=== PATIENT | female | born 1940 | race Caucasian/White ===

== ENCOUNTER 2017-02-09 17:20 | Inpatient (IN) | payer MEDICARE, BC ==
[~2017-02-09] VITALS: Ht 152.4 cm; Wt 72.6 kg
--- NOTE | ~2017-02-09 | CON ---
[place], [place] REPORT OF CONSULTATION NAME: SAMINA SPENCER [facility] #: [id number] UNIT #: [id number] ROOM: 522 DOCTOR: BOB JEFFRIES MDAUDIEHENRY BIRTHDATE: [birth year] DOS: 02/11/2017 HISTORY OF PRESENT ILLNESS: A 76-year-old patient who presented with chief complaint of nausea, vomiting, diarrhea after she has been out and she continued to have the same pattern. She had to be admitted for hydration and supportive management. At the time of admission, her BUN and creatinine was 32 and 1.6. GFR of 30. CBC: White blood cell was 27, H and H of 15 and 49. Her platelets was 420, lactic acid was 3.2 and followup was 2.9. CT scan of the abdomen and pelvic was done and liquid stool in the colon was identified. CBC again persists to have leukocytosis of 28. Blood culture was done with no growth. CBC finally dropped to 20. The patient has been started already on Flagyl. The patient was also on Merrem. Comprehensive metabolic panel was otherwise electrolytes balanced. Liver function tests were normal. Triglycerides of 202. PAST MEDICAL HISTORY: Associated gastroesophageal reflux, obesity, Parkinson, hypertension, anxiety. PAST SURGICAL HISTORY: Cholecystectomy, hysterectomy, appendectomy, and lower back surgery. SOCIAL HISTORY: Nonsmoker, nonalcohol consumer. FAMILY HISTORY: Noncontributory. ALLERGIES: MULTIPLE MEDICATIONS LISTED IN CHART. HOME MEDICATIONS: Including ibuprofen as well as others reviewed. REVIEW OF SYSTEMS: HEENT: Denies double vision, blurred vision. RESPIRATORY: Denies shortness of breath. CARDIOVASCULAR: No chest pain. DIGESTIVE SYSTEM: Nausea, vomiting, abdominal cramp. PHYSICAL EXAMINATION: VITAL SIGNS: Stable, nontoxic patient, alert and oriented to time, place, person. HEENT: Head normocephalic, nontraumatic. Mouth and buccal mucosa edentulous and aphthae ulcer. NECK: Supple, no thyromegaly, no cervical lymphadenopathy. CHEST: Symmetric anatomy, equal expansion. No wheeze, no rhonchi. HEART: Normal sinus rhythm, no gallop, no murmur. ABDOMEN: Soft. No hepato-organomegaly. Bowel sounds present. EXTREMITIES: No cyanosis, no pedal edema. NEUROLOGIC: Alert, oriented to time, place, person. IMPRESSION AND PLAN: Nausea, vomiting, diarrhea. Otherwise, Parkinson's, hypertension, history of hypothyroidism, history of anxiety, gastroesophageal reflux, possibility of a food poisoning is in differential diagnosis. However, due to her symptomatology, we are going to organize endoscopic assessment. [place], [place] REPORT OF CONSULTATION NAME: SAMINA SPENCER UNIT #: [id number] ROOM: 522 DOCTOR: MERVIN MANDEL,TONY BIRTHDATE: [birth year] Other adjunctive diagnoses as outlined in paragraph past medical, surgical history. Workup in progress for endoscopy today. Renal insufficiency as well, has been looked after. Her lactic acid has been reduced. Blood cultures have been negative. CT scan of the head was normal. Her hemoglobin A1c was 6.4, slightly elevated. TONY JEFFRIES MD CM:CONSTR:REPORT OF CONSULTATION 1500 02/12/17 0117 interface
--- NOTE | ~2017-02-09 | CON ---
[place], [place] REPORT OF CONSULTATION NAME: SAMINA SPENCER [facility] #: [id number] UNIT #: [id number] ROOM: 522 DOCTOR: MERVIN MANDELTONY BIRTHDATE: [birth year] DOS: 02/13/2017 HISTORY OF PRESENT ILLNESS: A 76-year-old who has presented with abdominal pain, previously underwent endoscopic assessment and was found to have gastritis and esophageal stricture, status post balloon dilation of the esophagus for dysphagia. She continues to have her abdominal pain; however, CT scan of the head has been normal and the CT scan of the abdomen and pelvis also has been reviewed. Liquefied stool in the colon. Otherwise, no appendicitis has been reported. LABS REVIEWED: CBC has been seen elevated at 28,000 white blood cell. Comprehensive metabolic panel: Sill compromised BUN and creatinine at 29 and 1.2. Labs reviewed, records reviewed. Details refer to consultation that has been dictated on her assessment including gastroesophageal reflux, parkinsonism, anxiety, hypertension, hysterectomy, cholecystectomy, appendectomy. REVIEW OF SYSTEMS: HEENT: Denies double vision, blurred vision. RESPIRATORY: Denies acute shortness of breath. CARDIOVASCULAR: Denies chest pain. DIGESTIVE SYSTEM: Still complaining of abdominal pain of moderate degree. PHYSICAL EXAMINATION: HEENT: Head normocephalic, nontraumatic. Mouth and buccal mucosa benign. NECK: Supple, no thyromegaly, no cervical lymphadenopathy. CHEST: Symmetric anatomy, equal expansion. No wheeze, no rhonchi. HEART: Normal sinus rhythm, no gallop, no murmur. ABDOMEN: Tender in all quadrants. Bowel sounds present. EXTREMITIES: No cyanosis, no pedal edema. NEUROLOGIC: Alert, oriented to time, place, person. IMPRESSION: Continuation of abdominal pain, leukocytosis. She is on p.o. Flagyl 500 mg t.i.d. I am concerned about her abdominal status. I need a CTA of the abdomen today. I have talked to this case over with Dr. Jerome Reid, attending physician and the information is going to be called to me and we are going to make a decision regarding leukocytosis management and suspected diarrhea. The patient is already on Flagyl for suspected C. diff positivity; however, the last C. diff has been negative on . [place], [place] REPORT OF CONSULTATION NAME: SAMINA SPENCER UNIT #: [id number] ROOM: 522 DOCTOR: MERVIN MANDEL,TONY BIRTHDATE: [birth year] TONY JEFFRIES MD CM:CONSTR:REPORT OF CONSULTATION 1351 02/13/17 2347 interface
--- NOTE | ~2017-02-09 | O ---
[place], [place] OPERATIVE NOTE NAME: [id number] UNIT #: [id number] ROOM: 522 DOCTOR: TONY JEFFRIES MD BIRTHDATE: [birth year] DOS: 02/11/2017 INDICATIONS: The patient has presented with chief complaint of nausea, vomiting, dysphagia, undergoing investigation. Consultation has been dictated. PROCEDURE: Today's procedure part of investigation is panendoscopy plus biopsy plus balloon dilation of esophagus. PREMEDICATION: Versed and Diprivan. SCOPE: Olympus forward-viewing gastroscope Q10 video. REPORT: After putting the patient in left lateral position and application of lubricant to the scope, the scope was introduced. Thereafter, under direct visualization, advanced through the length of esophagus without difficulty. No acute obstructive pathology is seen. Esophagus is collapsed. Gastric pouch was entered. Gastritis was noticed. Antral biopsy obtained. Duodenal bulb, second and third part within normal limits. The patient extubated, tolerated to the mid gastric pouch. A balloon size 18 was introduced into gastric pouch, swept along the esophagus. Highest resistance was minimal at the cervical esophagus. The patient extubated, tolerated procedure well. IMPRESSION: 1. Benign esophageal stricture, status post balloon dilation to size 18. 2. Mild gastritis. PLAN AND DISCUSSION: We are going to continue with Flagyl therapy as well as observation until diarrhea subsides. C. diff has been negative. TONY JEFFRIES MD CM:OPRECORD:OPERATIVE NOTE [id number] TONY JEFFRIES MD 02/11/17 1628 interface
[2017-02-09 17:25] VITALS: BP 124/73
[2017-02-09 17:57] LABS: HEMATOCRIT 49.3 % (37.0-47.0); HEMOGLOBIN 15.8 g/dl (12.0-16.0); MEAN CELL VOLUME 82.2 fl (81.0-99.0); MEAN CORPUSCULAR HGB 26.3 pg (27.0-31.0); MEAN PLATELET VOLUME 10.8 fl (9.6-12.3); PLATELET COUNT AUTOMATED 424 10*3/uL (130-400); RED CELL DISTRI WIDTH 15.9 % (0-14.5); WHITE BLOOD COUNT 27.7 10*3/uL (4.8-10.8)
--- NOTE | 2017-02-09 18:06 | NUR ---
UNABLE TO OBTAIN IV SITE WAITING ON ANOTHER NURSE TO ATTEMPT PT IN NO DISTRESS CALL LIGHT IN REACH
--- NOTE | 2017-02-09 18:07 | NUR ---
PT HAD LARGE, LIQUID BROWN MAL ODORUS STOOL.
[2017-02-09 18:11] LABS: ALBUMIN 4.7 gm/dl (3.1-4.5); CREATININE 1.65 mg/dL (0.55-1.02); POTASSIUM 3.3 mmol/L (3.5-5.1); TOTAL PROTEIN 8.9 gm/dL (6.4-8.2)
--- NOTE | 2017-02-09 18:11 | NUR ---
DR LEMUS NOTIFIED UNABLE TO OBTAIN IV ACCESS
[2017-02-09 18:16] LABS: ATYPICAL LYMPHS 2 % (0-0); BASOPHILS 1 % (0-1); TOTAL CELLS COUNTED 100 #CELLS
[2017-02-09 18:17] LABS: PLATELET SUFFICIENCY HIGH (NORMAL)
--- NOTE | 2017-02-09 18:19 | NUR ---
PT ON BED FUCHS AGAIN CALL LIGHT IN REACH
[2017-02-09 18:27] VITALS: BP 132/88
--- NOTE | 2017-02-09 18:44 | NUR ---
PT BACK ON BED FUCHS HAS HAD SEVERAL LOOSE STOOLS UNABLE TO OBTAINE URINE AT THIS TIME
[2017-02-09 19:55] VITALS: BP 136/53
--- NOTE | 2017-02-09 19:59 | NUR ---
PATIENT IN BED ANLY COMPLAINT IS THAT SHE WAS COLD, GOT WARM BLANKET FOR PT, PATIENT HAD LOOSE STOOL SMALL AMOUNT, PT CLEANED, NO NOTED WOUNDS ON PT.
[2017-02-09 20:45] LABS: BILIRUBIN NEGATIVE (NEGATIVE); BLOOD NEGATIVE (NEGATIVE); CLARITY SL CLOUDY (CLEAR); COLOR YELLOW (YELLOW); GLUCOSE NEGATIVE (NEGATIVE); KETONE TRACE (NEGATIVE); LEUKO ESTERASE NEGATIVE (NEGATIVE); NITRITE NEGATIVE (NEGATIVE); PH 5.5 (5.0-9.0); SPECIFIC GRAVITY 1.025 (1.005-1.030); UROBILINOGEN 0.2 E.U./dl (0.2-1.0)
--- NOTE | 2017-02-09 20:50 | NUR ---
REPORT GIVEN AT 2040 WAS AWAITING URINE SAMPLE BEFORE PLACING PT ON ANTIBIOTICS, URINE SAMPLE SENT ANTIBIOTICS STARTED, LAB HERE FOR LACTIC REDRAW WILL TRANSPORT PT TO 5E WHEN LAB IS COMPLETE
[2017-02-09 20:53] LABS: MUCOUS 1+
[2017-02-09 20:54] LABS: BACTERIA 1+; RBC 0-2 rbc/hpf (0-2)
[2017-02-09 21:08] VITALS: BP 153/97
--- NOTE | 2017-02-09 21:08 | NUR ---
A 76, admitted to , under the services of SHONA Rai DO with a diagnosis of GASTROENTERITIS, LEUKOCYTOSIS, SEPSIS. Chief complaint is NAUSEA/VOMITING. Patient arrived via stretcher from ER. Monitor applied. Initial assessment completed. Vital signs taken and recorded. SHONA RAI DO notified of admission to the unit. Orders received. See assessment for past medical history, medications and allergies. Patient and/or family oriented to unit. [facility] visitation policy reviewed. Clothing/patient valuable form completed. RADHA LEMONS
[2017-02-09] MEDS ORDERED: CYMBALTA60 MG PO (22:39)
[2017-02-09] MEDS ORDERED: PREVACID30 M2 PO (22:39)
[2017-02-09] MEDS ORDERED: LEVOTHYROXINE50 MCG PO (22:40)
[2017-02-09] MEDS ORDERED: POTASSIUM CHLO20 ME4 PO (22:41)
[2017-02-09] MEDS ORDERED: ZESTORETIC 20-1 EACH PO (22:43)
[2017-02-09] MEDS ORDERED: LIPITOR10 MG PO (22:44)
[2017-02-09] MEDS ORDERED: ADVIL200 M1 PO (22:45)
[2017-02-10] VITALS: BP 170/99
--- NOTE | 2017-02-10 01:25 | NUR ---
DR. MARIO CONTACTED IN REGARDS TO PT. DIET, STARTING WITH CLEAR LIQUID AND ADVANCING TOLERATED.
--- NOTE | 2017-02-10 01:26 | NUR ---
DR. MARIO CALLED IN REGARDING PT. SEE NEW ORDERS.
[2017-02-10 06:49] LABS: MEAN CELL VOLUME 81.1 fl (81.0-99.0); MEAN CORPUSCULAR HGB 26.4 pg (27.0-31.0); MEAN CORPUSCULAR HGB CONC 32.6 g/dl (33.0-37.0); MEAN PLATELET VOLUME 11.3 fl (9.6-12.3); PLATELET COUNT AUTOMATED 348 10*3/uL (130-400); RED BLOOD COUNT 5.03 10*6/uL (4.10-5.10); RED CELL DISTRI WIDTH 15.7 % (0-14.5); WHITE BLOOD COUNT 28.3 10*3/uL (4.8-10.8)
[2017-02-10 06:54] LABS: HEMATOCRIT 40.8 % (37.0-47.0); HEMOGLOBIN 13.3 g/dl (12.0-16.0)
[2017-02-10 07:17] LABS: ALBUMIN 3.4 gm/dl (3.1-4.5); CREATININE 1.12 mg/dL (0.55-1.02); FREE T4 1.06 ng/dl (0.76-1.46); PHOSPHOROUS 3.4 mg/dL (2.5-4.9); POTASSIUM 3.5 mmol/L (3.5-5.1); TOTAL PROTEIN 6.7 gm/dL (6.4-8.2)
[2017-02-10 07:20] LABS: ACT PARTIAL THROMBO TIME 23.1 SECONDS (20.8-31.5)
[2017-02-10 07:22] LABS: ACANTHOCYTES FEW; PLATELET SUFFICIENCY NORMAL (NORMAL); THYROID STIM HORMONE (HS) 0.825 uIU/ml (0.358-4.75); TOTAL CELLS COUNTED 100 #CELLS
[2017-02-10 08:00] VITALS: BP 169/63
[2017-02-10 08:04] LABS: VITAMIN D, 25-HYDROXY 36.1 ng/mL (30-100)
--- NOTE | 2017-02-10 10:55 | NUR ---
NOTIFIED DR MARIO OF BLOODY LOOSE STOOL. PT DOES STATE SHE HAS HX OF HEMMORRHOIDS.NO NEW ORDERS.
[2017-02-10 12:00] VITALS: BP 144/56
--- NOTE | 2017-02-10 13:47 | NUR ---
NORCO 5/325 MG GIVEN FOR C/O ABD/HEADACHE PAIN,10/01.
--- NOTE | 2017-02-10 15:17 | NUR ---
NOTIFIED DR JEFFRIES OF NEW CONSULT, ORDERS RECIEVED.
[2017-02-10 16:00] VITALS: BP 146/55
[2017-02-10 20:00] VITALS: BP 143/55
[2017-02-11] VITALS (8 sets, daily range): BP systolic 118–152; BP diastolic 42–62
--- NOTE | 2017-02-11 00:15 | NUR ---
C/O NECK DISCOMFORT; MEDICATED WITH NORCO.
--- NOTE | 2017-02-11 02:00 | NUR ---
RESTING IN BED WITH EYES CLOSED; PAIN MEDICATION GIVEN EARLIER APPARENTLY EFFECTIVE.
--- NOTE | 2017-02-11 06:00 | NUR ---
TOOK PO MEDICATIONS WITH ASSISTANCE. CALL LIGHT WITHIN REACH.
[2017-02-11 06:55] LABS: BASO # 0.1 10*3/uL (0.0-0.1); BASO % 0.4 % (0.0-1.0); LYMPH # 2.5 10*3/uL (1.3-4.4); LYMPH % 12.4 % (27.0-41.0); MEAN CORPUSCULAR HGB 26.6 pg (27.0-31.0); MEAN CORPUSCULAR HGB CONC 32.4 g/dl (33.0-37.0); MEAN PLATELET VOLUME 10.7 fl (9.6-12.3); MONO # 1.2 10*3/uL (0.1-1.0); MONO % 5.9 % (3.0-9.0); NEUT # 16.2 10*3/uL (2.3-7.9); PLATELET COUNT AUTOMATED 246 10*3/uL (130-400); RED CELL DISTRI WIDTH 15.7 % (0-14.5)
[2017-02-11 06:57] LABS: HEMATOCRIT 33.6 % (37.0-47.0); HEMOGLOBIN 10.9 g/dl (12.0-16.0)
[2017-02-11 07:25] LABS: CHLORIDE 108 mmol/L (98-107); CREATININE 0.68 mg/dL (0.55-1.02); SODIUM 141 mmol/L (136-145)
[2017-02-11 07:27] LABS: BUN 11 mg/dl (7-24)
--- NOTE | 2017-02-11 09:00 | NUR ---
Job Spotter in to talk to patient. Patient states lives at home with . There are few steps in the home. Physician: althea goodman Pharmacy: [facility] health services: none Patient's level of ADLs: MINIMAL ASSIST Patient has working utilities: all working DME: cane/walker Follow-up physician's appointment after d/c: will be made by hospitalist nurse director upon discharge Does patient want to access PORTAL?: no Discharge plan discussed with patient, patient lives at home with her , she uses a cane or walker for ambulation, discussed with her a discharge plan including a short term long term prior to going back home, patient stated she had been in a snf and she didn't feel she needed to go back at this time, also discussed VNA and she refused this also, case management will follow. KAREN RODRIGUEZ
--- NOTE | 2017-02-11 14:30 | NUR ---
PT OFF FLOOR TO OR WITH DR JEFFRIES FOR EGD.
[2017-02-12] VITALS: BP 144/56
[2017-02-12 04:00] VITALS: BP 142/52
[2017-02-12 08:00] VITALS: BP 168/60
--- NOTE | 2017-02-12 08:21 | NUR ---
Shift chart check completed.
--- NOTE | 2017-02-12 09:00 | NUR ---
case management visits with patient, patient denies any home needs
--- NOTE | 2017-02-12 09:48 | NUR ---
PATIENT REFUSED TO TAKE HER CYMBALTA AND HER KDUR.
[2017-02-12 10:33] LABS: BASO % 0.2 % (0.0-1.0); HEMATOCRIT 32.6 % (37.0-47.0); HEMOGLOBIN 10.4 g/dl (12.0-16.0); LYMPH % 12.6 % (27.0-41.0); MEAN CELL VOLUME 80.3 fl (81.0-99.0); MEAN CORPUSCULAR HGB 25.6 pg (27.0-31.0); MEAN CORPUSCULAR HGB CONC 31.9 g/dl (33.0-37.0); MEAN PLATELET VOLUME 10.8 fl (9.6-12.3); MONO # 0.8 10*3/uL (0.1-1.0); MONO % 4.9 % (3.0-9.0); NEUT # 13.1 10*3/uL (2.3-7.9); NEUT % 81.7 % (47.0-73.0); PLATELET COUNT AUTOMATED 236 10*3/uL (130-400); RED BLOOD COUNT 4.06 10*6/uL (4.10-5.10); RED CELL DISTRI WIDTH 15.6 % (0-14.5); WHITE BLOOD COUNT 16.1 10*3/uL (4.8-10.8)
[2017-02-12 11:04] LABS: BUN 7 mg/dl (7-24); CHLORIDE 110 mmol/L (98-107); CREATININE 0.56 mg/dL (0.55-1.02); POTASSIUM 2.9 mmol/L (3.5-5.1); SODIUM 144 mmol/L (136-145)
[2017-02-12 12:00] VITALS: BP 154/57
--- NOTE | 2017-02-12 15:03 | NUR ---
PATIENT REFUSED TO TAKE HER KDUR
[2017-02-12 16:00] VITALS: BP 184/60
[2017-02-12 20:00] VITALS: BP 160/70
--- NOTE | 2017-02-12 20:17 | NUR ---
PT COMPLIANT WITH MEDS. DAUGHTER AT [facility].
--- NOTE | 2017-02-12 20:25 | NUR ---
PT AWAKE, ALERT ORIENTED. PLEASANT AND COOPERATIVE WITH ASSESSMENT. 2 LITERS PER MIN. NASAL CANNULA INTACT. DENIES SOB. NO COUGH UPON ASSESSMENT. PER PT C/O ABDOMINAL FULLNESS WITH HYPERACTIVE BOWEL SOUNDS. NO EDEMA BLE. PPP. DENIES ANY NEED AT THIS TIME. CALL LIGHT WITHIN REACH. AT BEDSIDE.
--- NOTE | 2017-02-12 21:00 | NUR ---
PT GIVEN TYLENOL FOR C/O OF HEADACHE.
[2017-02-13] VITALS: BP 140/57
--- NOTE | 2017-02-13 06:00 | NUR ---
PATIENT REFUSED AM LAB DRAWS.
[2017-02-13 08:00] VITALS: BP 184/64
--- NOTE | 2017-02-13 08:00 | NUR ---
PATIENT IS RESTING IN BED WITH FAMILY AT THE BEDSIDE. PATIENT IS SCHEDULED FOR A PICC LINE PLACEMENT THIS MORNING. PATIENT DENIES ANY PAIN OR DISCOMFORT UPON ASSESSMENT. PATIENT HAS A PRODUVTIVE COUGH WITH WHITE SPUTUM. PATIENT DENIES SOB. CALL LIGHT WITHIN REACH. SEE ASSESSMENT.
--- NOTE | 2017-02-13 09:00 | NUR ---
case management visits with patient, patient denies any home needs
--- NOTE | 2017-02-13 09:25 | NUR ---
PATIENT OFF THE FLOOR VIA WHEELCHAIR FOR PICC LINE PLACEMENT.
--- NOTE | 2017-02-13 10:27 | NUR ---
PATIENT BACK ON FLOOR VIA WHEELCHAIR. PICC 37CM IN THE R UPPER ARM.
[2017-02-13 12:00] VITALS: BP 167/56
[2017-02-13 12:23] LABS: BASO % 0.3 % (0.0-1.0); HEMATOCRIT 35.3 % (37.0-47.0); HEMOGLOBIN 11.6 g/dl (12.0-16.0); LYMPH # 2.2 10*3/uL (1.3-4.4); LYMPH % 19.3 % (27.0-41.0); MEAN CELL VOLUME 79.3 fl (81.0-99.0); MEAN CORPUSCULAR HGB 26.1 pg (27.0-31.0); MEAN CORPUSCULAR HGB CONC 32.9 g/dl (33.0-37.0); MEAN PLATELET VOLUME 10.6 fl (9.6-12.3); MONO # 0.9 10*3/uL (0.1-1.0); MONO % 7.6 % (3.0-9.0); NEUT # 8.3 10*3/uL (2.3-7.9); NEUT % 72.4 % (47.0-73.0); PLATELET COUNT AUTOMATED 293 10*3/uL (130-400); RED BLOOD COUNT 4.45 10*6/uL (4.10-5.10); RED CELL DISTRI WIDTH 15.4 % (0-14.5); WHITE BLOOD COUNT 11.4 10*3/uL (4.8-10.8)
[2017-02-13 12:53] LABS: BUN 9 mg/dl (7-24); CHLORIDE 103 mmol/L (98-107); POTASSIUM 2.8 mmol/L (3.5-5.1); SODIUM 141 mmol/L (136-145)
[2017-02-13 16:00] VITALS: BP 151/97; BP 186/71
--- NOTE | 2017-02-13 19:42 | NUR ---
PATIENT IS IN THE ROOM EATING SOFT FOODS. PATIENT DENIES ANY PAIN OR DISCOMFORT AT THIS TIME. PATIENT DENIES CHEST PAIN OR DIZZINESS. HOB ELEVATED, FAMILY AT THE BEDSIDE, CALL LIGHT IS WITHIN REACH. SEE ASSESSMENT.
[2017-02-13 20:00] VITALS: BP 147/53
[2017-02-14] VITALS: BP 180/70
[2017-02-14 04:00] VITALS: BP 138/63
[2017-02-14 06:09] LABS: BASO % 0.4 % (0.0-1.0); HEMATOCRIT 35.4 % (37.0-47.0); HEMOGLOBIN 11.5 g/dl (12.0-16.0); LYMPH # 2.6 10*3/uL (1.3-4.4); LYMPH % 24.6 % (27.0-41.0); MEAN CELL VOLUME 79.6 fl (81.0-99.0); MEAN CORPUSCULAR HGB 25.8 pg (27.0-31.0); MEAN CORPUSCULAR HGB CONC 32.5 g/dl (33.0-37.0); MEAN PLATELET VOLUME 10.9 fl (9.6-12.3); MONO % 9.5 % (3.0-9.0); NEUT # 6.8 10*3/uL (2.3-7.9); PLATELET COUNT AUTOMATED 294 10*3/uL (130-400); RED BLOOD COUNT 4.45 10*6/uL (4.10-5.10); RED CELL DISTRI WIDTH 15.3 % (0-14.5); WHITE BLOOD COUNT 10.5 10*3/uL (4.8-10.8)
[2017-02-14 06:39] LABS: BUN 8 mg/dl (7-24); CHLORIDE 104 mmol/L (98-107); SODIUM 142 mmol/L (136-145)
[2017-02-14 08:00] VITALS: BP 184/86
[2017-02-14] MEDS ORDERED: METRONIDAZOLE500 M1 PO (11:00)
[2017-02-14] MEDS ORDERED: FEOSOL325 MG PO (11:02)
[2017-02-14] MEDS ORDERED: FLAGYL500 MG PO (11:59)
--- NOTE | 2017-02-14 12:08 | NUR ---
Discharge instructions reviewed with patient/family. Patient receptive and verbalizes understanding. Follow-up care arranged. Written instructions given to patient/family. BRICE MOREL
== END 2017-02-14 12:08 | disposition home or self-care (01) | DRG 871 ==
LOC: ED 17:20 → 5E 19:21
PROVIDERS: Emergency Medicine; Hospitalist; Internal Medicine; Internal Medicine Gastroenterology; Student in an Organized Health Care Education/Training Program; ADMIT Internal Medicine
PROC: 0DB78ZX Excision of Stomach, Pylorus, Via Natural or Artificial Opening Endoscopic, Diagnostic (ICD-10-PCS; principal; 2017-02-11)
PROC: 0D718ZZ Dilation of Upper Esophagus, Via Natural or Artificial Opening Endoscopic (ICD-10-PCS; principal; 2017-02-11)
PROC: 02HV33Z Insertion of Infusion Device into Superior Vena Cava, Percutaneous Approach (ICD-10-PCS; 2017-02-13)
DX: A41.9 Sepsis, unspecified organism (principal); N17.0 Acute kidney failure with tubular necrosis; K92.1 Melena; K52.9 Noninfective gastroenteritis and colitis, unspecified; R65.20 Severe sepsis without septic shock; K29.70 Gastritis, unspecified, without bleeding; K22.2 Esophageal obstruction; E87.6 Hypokalemia; E03.9 Hypothyroidism, unspecified; F41.9 Anxiety disorder, unspecified; E66.9 Obesity, unspecified; G20 Parkinson's disease; I10 Essential (primary) hypertension; K21.9 Gastro-esophageal reflux disease without esophagitis; Z90.710 Acquired absence of both cervix and uterus; Z68.31 Body mass index [BMI] 31.0-31.9, adult; Z90.49 Acquired absence of other specified parts of digestive tract; Z88.1 Allergy status to other antibiotic agents; Z88.2 Allergy status to sulfonamides; Z88.8 Allergy status to other drugs, medicaments and biological substances; Z91.048 Other nonmedicinal substance allergy status; Z82.49 Family history of ischemic heart disease and other diseases of the circulatory system; Z80.8 Family history of malignant neoplasm of other organs or systems